=== PATIENT | female | born 1995 | race Caucasian/White ===

== ENCOUNTER 2020-10-21 22:00 | Emergency (ER) | payer SELFPAY ==
[~2020-10-21] VITALS: Ht 175.3 cm; Wt 99.8 kg
[2020-10-21 22:10] VITALS: BP 116/73
[2020-10-22] MEDS ORDERED: NACL 0.9% 1,000 ML IV ONE (00:35)
--- NOTE | 2020-10-22 00:40 | NUR ---
PT CALLED OUTSIDE AND ON PERSONAL CELLPHONE WITH NO ANSWER. PATIENT LEFT WITHOUT BEING SEEN BY DR. MENDOZA. NO FURTHER CARE PROVIDED FOR PATIENT.
--- NOTE | 2020-10-22 00:47 | NUR ---
PER DR. MENDOZA CANCEL ALL ORDERS FOR PATIENT. CARRIED OUT.
== END 2020-10-22 00:40 | disposition left against medical advice (07) ==
LOC: MED 22:00
DX: U07.1 COVID-19 (principal); Z53.21 Procedure and treatment not carried out due to patient leaving prior to being seen by health care provider